=== PATIENT | female | born 1990 | race Caucasian/White ===

== ENCOUNTER 2019-01-08 18:37 | Emergency (ER) | payer SELFPAY ==
[2019-01-08 18:49] VITALS: BP 117/73; PULSE 86; RESP 18; TEMP 98.3; O2SAT 97
--- NOTE | 2019-01-08 19:31 | C.PDOC ---
History Of Present Illness 28 y/o female comes in to ED stating that she slipped and banged her right hernandez against a wooden table at home, and is having pain to the area. Patient states she is unable to bare weight due to the pain. Denies any other injuries. Time Seen by Provider: 01/08/19 18:45 Chief Complaint (Nursing): Lower Extremity Problem/Injury History Per: Patient History/Exam Limitations: no limitations Onset/Duration Of Symptoms: Days Current Symptoms Are (Timing): Still Present Past Medical History Reviewed: Historical Data, Nursing Documentation, Vital Signs Vital Signs: Last Vital Signs Temp 98.3 F 01/08/19 18:46 Pulse 86 01/08/19 18:46 Resp 18 01/08/19 18:46 BP 117/73 01/08/19 18:46 Pulse Ox 97 01/08/19 18:46 Surgical History: Appendectomy (2016) Family History: States: No Known Family Hx - Social History Hx Alcohol Use: No Hx Substance Use: No - Immunization History Hx Tetanus Toxoid Vaccination: No Hx Influenza Vaccination: No Hx Pneumococcal Vaccination: No Review Of Systems Musculoskeletal: Positive for: Other (Right Hernandez Pain). Negative for: Neck Pain, Leg Pain Physical Exam - Physical Exam Appears: Non-toxic, In Acute Distress (mild) Skin: Warm, Dry Head: Atraumatic, Normacephalic Eye(s): bilateral: Normal Inspection Oral Mucosa: Moist Neck: Supple Cardiovascular: Rhythm Regular, No Murmur Respiratory: Normal Breath Sounds Extremity: No Tenderness (no tenderness to knee, foot, or ankle), No Calf Tenderness, Other (Right mid hernandez has 2 cm contusion that is tender to palpation, no laceration or abrasions) Extremity: Bilateral: Normal ROM Neurological/Psych: Oriented x3, Normal Speech ED Course And Treatment O2 Sat by Pulse Oximetry: 97 (RA) Pulse Ox Interpretation: Normal Progress Note: Right tibia fibula XR ordered, which showed no fractures. Patient got crutches due to inability to walk. Patient was given ibuprofen and will be discharged home. Disposition Counseled Patient/Family Regarding: Studies Performed, Diagnosis, Need For Followup, Rx Given - Disposition Referrals: [facility] [Outside] Disposition: HOME/ ROUTINE Disposition Time: 19:30 Condition: STABLE Additional Instructions: FOLLOW UP WITH YOUR DOCTOR/CLINIC IN 1-2 DAYS USE MEDICATION FOR PAIN NEEDED (MOTRIN AND TYLENOL CAN ALSO BE TAKEN) ELEVATE RIGHT LEG MUCH POSSIBLE APPLY ICE TO AREA FOR FIRST 24 HOURS RETURN TO ER IF SYMPTOMS WORSEN Prescriptions: Naproxen 375 mg PO BID PRN #20 tablet PRN Reason: pain Instructions: Contusion (DC) Forms: [employer] (Guatemalan) Print Language: SPA - POA Present On Arrival: Falls Or Trauma - Clinical Impression Clinical Impression: Contusion, lower leg - Scribe Statement The provider has reviewed the documentation as recorded by the Deisy Boland Provider Attestation: All medical record entries made by the Deisy were at my direction and personally dictated by me. I have reviewed the chart and agree that the record accurately reflects my personal performance of the history, physical exam, medical decision making, and the department course for this patient. I have also personally directed, reviewed, and agree with the discharge instructions and disposition.
--- NOTE | 2019-01-09 11:16 | RAD ---
PROCEDURE: Radiographs of the right tibia and fibula. HISTORY: right hernandez pain, r/o fx COMPARISON: None available. TECHNIQUE: Frontal and lateral views obtained. FINDINGS: BONES: No acute displaced fracture. JOINT SPACES: No dislocation. OTHER FINDINGS: Soft tissues appear unremarkable. No evidence of radiopaque foreign body. IMPRESSION: No acute displaced fracture, dislocation, or significant joint effusion identified. If symptoms persist, or if there is continued clinical concern, x-ray follow-up in 7-10 days should be considered.
== END 2019-01-08 19:43 | disposition home or self-care (01) ==
LOC: C.ER 18:37
DX: S80.11XA Contusion of right lower leg, initial encounter (principal); W22.8XXA Striking against or struck by other objects, initial encounter